=== PATIENT | male | born 1985 | race Caucasian/White ===

== ENCOUNTER 2020-05-29 18:36 | Emergency (ER) | payer OTHER, MEDICAID, SELFPAY ==
[2020-05-29] VITALS (22 sets, daily range): BP systolic 111–127; BP diastolic 55–68; PULSE 66–98; RESP 12–23; TEMP 36.8; O2SAT 90–97; BMI 21.0
--- NOTE | 2020-05-29 19:01 | ED.SEIZURE ---
HPI - Seizure General Chief Complaint: Seizure Stated Complaint: Seizure Time Seen by Provider: 05/29/20 19:00 Source: EMS Mode of arrival: EMS History of Present Illness HPI Narrative: 34-year-old gentleman presents via medics after reports of a grand mal seizure on the side of the road. Medics report that he has a known seizure disorder and uses both Dilantin and Keppra, he typically is homeless and typically seeks care at [facility]. Related Data Home Medications Medication Instructions Recorded Confirmed phenytoin sodium extended 300 mg PO QDAY #0 04/25/12 [Dilantin Extended] Previous Rx's Medication Instructions Recorded levetiracetam [Keppra] 1,000 mg PO BID #120 tab 05/30/20 Allergies Allergy/AdvReac Type Severity Reaction Status Date / Time bee venom protein (honey bee) Allergy Unknown Verified 05/29/20 19:14 egg Allergy Unknown Verified 05/29/20 19:14 iodine Allergy Unknown Verified 05/29/20 19:14 SULFATES Allergy Intermediate VOMITING Uncoded 02/02/18 12:10 DIARRHEA Review of Systems Review of Systems Narrative: Patient is postictal ROS Unobtainable: Unobtainable due to mental status/LOC Patient History Medical History (Updated 05/30/20 @ 00:48 by Esther Cage MD) Seizure disorder (Acute) Social History Smoking Status: Current every day smoker Smoking Status: Current every day smoker alcohol intake frequency: 3 or more drinks per day Substance Use Type: marijuana and methamphetamine Exam Narrative Exam Narrative: General: Healthy appearing, in no acute distress. Mild sunburn to face and arms. Responds to questions by opening his eyes but no significant verbal interaction yet HEENT: Moist mucous membranes, mildly injected sclera bilaterally with reactive pupils, minor damage to the side of his tongue without any bleeding Neck: supple Respiratory: Lungs are clear to auscultation, no wheezing no rales no rhonchi. Full and symmetrical air movement Cardiac: Regular rate and rhythm, 3/6 systolic ejection murmur no bruits Abdomen: Soft nontender good bowel tones, no flank pain Skin: Warm and dry, mild sunburn over the face and arms Neurologic: Grossly neurologically intact, hyperreflexic but no focal deficits, still postictal that seems to be improving rapidly Extremities: No trauma, well perfused Psych: Postictal Initial Vital Signs Initial Vital Signs: Vital Signs Temperature 98.2 F 05/29/20 18:43 Pulse Rate 98 H 05/29/20 18:43 Respiratory Rate 18 05/29/20 18:43 Blood Pressure 111/57 L 05/29/20 18:43 Pulse Oximetry 97 05/29/20 18:43 Course Orders Ordered: ED Orders 05/29/20 18:45 Basic Metabolic Panel Stat Complete Blood Count AUTO DIFF Stat Ethanol (ETOH) Stat Magnesium Stat Prolactin Stat 05/29/20 20:35 Urine Drug Screen, Rapid Stat Urine Microscopic Stat Discontinued Medications Levetiracetam 1,500 mg/ Sodium (Chloride) 115 mls @ 460 mls/hr IV NOW ONE Stop: 05/29/20 19:11 Last Infusion: 05/29/20 20:00 Dose: 460 mls/hr Documented by: Admin: 05/29/20 19:42 Dose: 460 mls/hr Documented by: HANNAH Vital Signs Vital signs: Vital Signs - 8 hr 05/29/20 18:43 05/29/20 18:57 05/29/20 19:00 Temperature 98.2 F Pulse Rate 98 H 97 H 98 H Respiratory Rate 18 18 17 Blood Pressure 111/57 L 112/56 L Pulse Oximetry 97 92 90 L 05/29/20 19:15 05/29/20 19:30 05/29/20 19:45 Temperature Pulse Rate 97 H 96 H 96 H Respiratory Rate 17 17 17 Blood Pressure 114/55 L 113/58 L 115/55 L Pulse Oximetry 92 92 93 05/29/20 20:00 05/29/20 20:15 05/29/20 20:30 Temperature Pulse Rate 95 H 91 H 88 Respiratory Rate 17 19 20 Blood Pressure 117/58 L 125/58 L 119/58 L Pulse Oximetry 93 94 92 05/29/20 20:45 05/29/20 21:00 05/29/20 21:15 Temperature Pulse Rate 89 91 H 91 H Respiratory Rate 17 16 18 Blood Pressure 122/58 L 127/59 L 126/58 L Pulse Oximetry 94 90 L 90 L 05/29/20 21:30 05/29/20 21:45 05/29/20 22:00 Temperature Pulse Rate 90 84 79 Respiratory Rate 15 15 23 Blood Pressure 127/63 126/68 114/55 L Pulse Oximetry 93 93 93 05/29/20 22:15 05/29/20 22:30 05/29/20 22:45 Temperature Pulse Rate 78 74 80 Respiratory Rate 17 17 15 Blood Pressure 114/57 L 117/59 L 116/58 L Pulse Oximetry 93 93 93 05/29/20 23:00 05/29/20 23:15 05/29/20 23:30 Temperature Pulse Rate 79 78 76 Respiratory Rate 14 15 14 Blood Pressure 123/67 120/65 119/65 Pulse Oximetry 94 94 94 05/29/20 23:45 Temperature Pulse Rate 66 Respiratory Rate 12 Blood Pressure 126/68 Pulse Oximetry 96 MDM - Seizure Medical Records Attestation: I reviewed the patient's medical records. Lab Data Attestation: I reviewed the patient's lab results. Lab results narrative: All labs are consistent with recent seizure. Result diagrams: 05/29/20 18:45 05/29/20 18:45 Labs: Lab Results 05/29/20 05/29/20 05/29/20 Range/Units 18:45 18:45 20:35 WBC 12.6 H (4.5-11.0) X10^3/uL RBC 4.38 L (4.5-5.9) X10^6/uL Hgb 13.3 L (13.5-17.5) g/dL Hct 40.1 L (41-53) % MCV 91.6 (80-100) fL MCH 30.4 (26-34) PG MCHC 33.1 (30-36) % RDW 15.8 H (11.6-14.8) % Plt Count 273 (150-400) X10^3/uL Neut % (Auto) 80.1 H (50-75) % Lymph % (Auto) 14.0 L (25-40) % [place] % (Auto) 4.7 (3-14) % Eos % (Auto) 0.9 L (2-4) % Baso % (Auto) 0.3 (0-2) % Neut # (Auto) 04186 H (2375-7995) /uL Lymph # (Auto) 1800 (6004-7282) /uL [place] # (Auto) 600 (0-900) /uL Eos # (Auto) 100 (0-450) /uL Baso # (Auto) 0 (0-100) /uL Sodium 141 (137-145) mmol/L Potassium 3.4 (3.4-5.1) mmol/L Chloride 105 (98-107) mmol/L Carbon Dioxide 24 (22-32) mmol/L BUN 12 (9-20) mg/dL Creatinine 0.81 (0.66-1.25) mg/dL Estimated GFR > 60.0 (>60) mL/min BUN/Creatinine Ratio 14.8 (6-22) Glucose 95 (70-100) mg/dL Calcium 9.8 (8.4-10.2) mg/dL Magnesium 1.9 (1.6-2.3) mg/dL Prolactin 26.0 H (3.7-17.9) ng/mL Urine Color Cancelled Urine Appearance Cancelled Urine pH Cancelled Ur Specific [place] Cancelled Urine Protein Cancelled Urine Glucose (UA) Cancelled Urine Ketones Cancelled Urine Occult Blood Cancelled Urine Nitrate Cancelled Urine Bilirubin Cancelled Urine Urobilinogen Cancelled Ur Leukocyte Esterase Cancelled Urine RBC (0-5/HPF) Urine WBC (0-5/HPF) Ur Squamous Epith Cells (0-5/HPF) Urine Bacteria (None) Urine Mucus (Negative) Ur Culture Indicated? U Opiates 300ng/mL cut (Negative) Ur Oxycodone Screen (Negative) Urine Methadone Screen (Negative) Ur Barbiturates Screen (Negative) U Tricyclic Antidepress (Negative) Ur Phencyclidine Scrn (Negative) Ur Amphetamines Screen (Negative) U Methamphetamines Scrn (Negative) Ur MDMA Scrn (Ecstasy) (Negative) U Benzodiazepines Scrn (Negative) Urine Cocaine Screen (Negative) U Marijuana (THC) Screen (Negative) Ethyl Alcohol 78 H ( - 10) mg/dL 05/29/20 05/29/20 Range/Units 20:35 20:35 WBC (4.5-11.0) X10^3/uL RBC (4.5-5.9) X10^6/uL Hgb (13.5-17.5) g/dL Hct (41-53) % MCV (80-100) fL MCH (26-34) PG MCHC (30-36) % RDW (11.6-14.8) % Plt Count (150-400) X10^3/uL Neut % (Auto) (50-75) % Lymph % (Auto) (25-40) % [place] % (Auto) (3-14) % Eos % (Auto) (2-4) % Baso % (Auto) (0-2) % Neut # (Auto) (2208-3806) /uL Lymph # (Auto) (0488-7627) /uL [place] # (Auto) (0-900) /uL Eos # (Auto) (0-450) /uL Baso # (Auto) (0-100) /uL Sodium (137-145) mmol/L Potassium (3.4-5.1) mmol/L Chloride (98-107) mmol/L Carbon Dioxide (22-32) mmol/L BUN (9-20) mg/dL Creatinine (0.66-1.25) mg/dL Estimated GFR (>60) mL/min BUN/Creatinine Ratio (6-22) Glucose (70-100) mg/dL Calcium (8.4-10.2) mg/dL Magnesium (1.6-2.3) mg/dL Prolactin (3.7-17.9) ng/mL Urine Color Urine Appearance Urine pH Ur Specific [place] Urine Protein Urine Glucose (UA) Urine Ketones Urine Occult Blood Urine Nitrate Urine Bilirubin Urine Urobilinogen Ur Leukocyte Esterase Urine RBC None seen (0-5/HPF) Urine WBC 0-1/hpf (0-5/HPF) Ur Squamous Epith Cells 0-1 /hpf (0-5/HPF) Urine Bacteria None seen (None) Urine Mucus 1+ H (Negative) Ur Culture Indicated? Cult not indicated U Opiates 300ng/mL cut Negative (Negative) Ur Oxycodone Screen Negative (Negative) Urine Methadone Screen Negative (Negative) Ur Barbiturates Screen Negative (Negative) U Tricyclic Antidepress Positive H (Negative) Ur Phencyclidine Scrn Negative (Negative) Ur Amphetamines Screen Negative (Negative) U Methamphetamines Scrn Negative (Negative) Ur MDMA Scrn (Ecstasy) Negative (Negative) U Benzodiazepines Scrn Positive H (Negative) Urine Cocaine Screen Negative (Negative) U Marijuana (THC) Screen Positive H (Negative) Ethyl Alcohol ( - 10) mg/dL Point of Care Testing Glucose POC 110 Urine Dip Bedside Urine Glucose Negative Bedside Urine Bilirubin + 1 Bedside Urine Ketone +/- 5 Urine Specific [place] 1.015 Bedside Urine Occult Blood - Negative Bedside Urine pH 6.0 Bedside Urine Protein +/- 15 Bedside Urine Urobilinogen +/- 1mg Bedside Urine Nitrite - Negative Bedside Urine Leukocytes - Negative Esterase MDM Narrative Medical decision making narrative: 34-year-old gentleman with a history of a seizure disorder. Not taking his medications and had a seizure today. Labs are reassuring. Patient is essentially homeless. He states that he does not currently have his Keppra and isn't sure of his other medications. His Keppra is refilled for a month and he is encouraged to follow-up with his primary care physician. At this time, he is safe for home discharge Discharge Plan Departure Patient Disposition: Home Clinical Impression: Seizure disorder Instructions: DI for Seizure Disorder -- Adult Activity Restrictions/Additional Instructions: I am sorry you have had another seizure today. you were given IV keppra in the ER I have given you a prescription of keppra, 500mg pills, 2 pills (1000mg) am and pm. I don't have any way to confirm your other medications and doses this evening to offer you refills. Please follow up with you regular doctor to get your medications refilled to prevent continued seizures Prescriptions: New levetiracetam [Keppra] 500 mg tablet 1,000 mg PO BID Qty: 120 RF: 0 No Action phenytoin sodium extended [Dilantin Extended] 100 MG capsule 300 mg PO QDAY Qty: 0 RF: 0
[2020-05-29 19:30] LABS: Add Manual Diff / Slide Review NO; Basophils Absolute Auto 0 /uL (0-100); Basophils Percent Auto 0.3 % (0-2); Eosinophils Absolute Auto 100 /uL (0-450); Eosinophils Percent Auto 0.9 % (2-4); Hematocrit 40.1 % (41-53); Hemoglobin 13.3 g/dL (13.5-17.5); Lymphocytes Absolute Auto 1800 /uL (1100-4500); Mean Corpuscular HGB Conc 33.1 % (30-36); Mean Corpuscular Hemoglobin 30.4 PG (26-34); Mean Corpuscular Volume 91.6 fL (80-100); Monocytes Absolute Auto 600 /uL (0-900); Monocytes Percent Auto 4.7 % (3-14); Neutrophils Absolute Auto 10100 /uL (1500-7000); Neutrophils Percent Auto 80.1 % (50-75); Platelet Count 273 X10^3/uL (150-400); Red Blood Cell Count 4.38 X10^6/uL (4.5-5.9); Red Cell Distribution Width 15.8 % (11.6-14.8); White Blood Cell Count 12.6 X10^3/uL (4.5-11.0)
[2020-05-29 19:34] LABS: BUN Creatinine Ratio 14.8 (6-22); Blood Urea Nitrogen 12 mg/dL (9-20); Calcium 9.8 mg/dL (8.4-10.2); Carbon Dioxide 24 mmol/L (22-32); Chloride 105 mmol/L (98-107); Estimated Glomerular Filt Rate > 60.0 mL/min (>60); Ethanol (ETOH) 78 mg/dL; Glucose 95 mg/dL (70-100); HEMOLYSIS < 15 (0-50); Magnesium 1.9 mg/dL (1.6-2.3); Potassium 3.4 mmol/L (3.4-5.1); Sodium 141 mmol/L (137-145)
[2020-05-29] MEDS: levETIRAcetam 1,500 MG in SODIUM CHLORIDE 0.9% 100 ML 460 ML IV (19:42)
[2020-05-29 20:50] LABS: Bacteria Urine None Seen; RBC Urine None Seen (0-5/HPF)
[2020-05-29 20:58] LABS: Culture Indicated Urine Cult Not Indicated; Mucus Urine 1+ (Negative); Squamous Epithelial Cell Urine 0-1 /HPF (0-5/HPF); WBC Urine 0-1/HPF (0-5/HPF)
[2020-05-29 21:00] LABS: UR Morphine/Opiate cutoff 300 Negative (Negative); Ur Creatinine Normal (Normal); Ur Specific Gravity Normal (Normal); Urine Amphetamines Negative (Negative); Urine Barbiturates Negative (Negative); Urine Benzodiazepines Positive (Negative); Urine Cocaine Negative (Negative); Urine MDMA Negative (Negative); Urine Methamphetamines Negative (Negative); Urine Phencyclidine Negative (Negative); Urine Tetrahydrocannabinol Positive (Negative); Urine pH Normal (Normal)
[2020-05-29 21:01] LABS: Urine Methadone Negative (Negative); Urine Oxycodone Negative (Negative); Urine Tricyclic Antidepressant Positive (Negative)
== END 2020-05-30 01:00 | disposition home or self-care (01) ==
PROVIDERS: Emergency Provider Emergency Medicine
DX: G40.909 Epilepsy, unspecified, not intractable, without status epilepticus (principal)
CPT/HCPCS: 36415; 80048; 80305; 80320; 81003; 81015; 82962; 83735; 84146; 85025; 96365; 99284; J1953

== ENCOUNTER 2020-05-30 01:37 | Emergency (ER) | payer OTHER, MEDICAID, SELFPAY ==
--- NOTE | 2020-05-30 01:40 | ED_ITS ---
HPI - General Adult <Esther Cage MD - Last Filed: 05/30/20 18:00> General Chief complaint: Psychiatric Symptoms Stated complaint: SI Time Seen by Provider: 05/30/20 01:39 History of Present Illness HPI narrative: 34-year-old gentleman with a history of a seizure disorder and homelessness was brought in initially by medics after having a seizure witnessed by bystanders. He was initially postictal labs are unremarkable and he was discharged home. Asked what medications he took he said that he had none available to him after looking through his ?black bag that hold all his were early possessions? he was unable to remember the names of his medications except for Keppra. He believes that he takes a 1000 mg twice a day. He was given 1500 mg of IV Keppra and a prescription to fill along with instructions to follow-up with his primary care physician. He asked to stay for the evening and we declined. Within 5 minutes of discharge he comes back to the registration desk saying that he has taken 5 300 mg Seroquel (1500mg) and 10 25 mg hydroxyzine (250mg) and he wants to kill himself. It is unclear which part is the untruth, that he did not know which medications he was on and did not have any in his bag or that he did not actually take the subsequent Seroquel and hydroxyzine. On further questioning, he states that he has been suicidal for the last 3 weeks and is not quite sure why he is on this earth. Apparently his mother sometime in March. He states he has tried jumping off of things to kill himself previously. In reviewing ED i.e. data most of his prior diagnosis include suicidal, suicidal ideation, bipolar disorder, alcohol use disorder, alcohol withdrawal or variations of those combinations Related Data Home Medications Medication Instructions Recorded Confirmed phenytoin sodium extended 300 mg PO QDAY #0 04/25/12 [Dilantin Extended] Previous Rx's Medication Instructions Recorded levetiracetam [Keppra] 1,000 mg PO BID #120 tab 05/30/20 Allergies Allergy/AdvReac Type Severity Reaction Status Date / Time bee venom protein (honey bee) Allergy Unknown Verified 05/29/20 19:14 egg Allergy Unknown Verified 05/29/20 19:14 iodine Allergy Unknown Verified 05/29/20 19:14 SULFATES Allergy Intermediate VOMITING Uncoded 02/02/18 12:10 DIARRHEA Review of Systems <Esther Cage MD - Last Filed: 05/30/20 18:00> Review of Systems Narrative: Willfully manipulative and belligerent and not offering answers to review of system questions ROS Unobtainable: Unobtainable due to mental condition Patient History <Esther Cage MD - Last Filed: 05/30/20 18:00> Medical History Seizure disorder (Acute) Social History Smoking Status: Current every day smoker Smoking Status: Current every day smoker alcohol intake frequency: 3 or more drinks per day Substance Use Type: marijuana and methamphetamine Exam <Esther Cage MD - Last Filed: 05/30/20 18:00> Narrative Exam Narrative: General: Disheveled, no acute distress HEENT: Moist mucous membranes, normal sclera with reactive pupils, Neck: No JVD, supple Respiratory: Lungs are clear to auscultation, no wheezing no rales no rhonchi. Full and symmetrical air movement Cardiac: Regular rate and rhythm no murmurs no bruits Abdomen: Soft nontender good bowel tones, no flank pain Skin: Warm and dry, no rashes Neurologic: Grossly neurologically intact with no obvious asymmetries or abnormalities Extremities: No trauma, well perfused Psych: Manipulative and uncooperative but not overtly violent Initial Vital Signs Initial Vital Signs: Vital Signs Temperature 98.5 F 05/30/20 01:45 Pulse Rate 73 05/30/20 01:45 Respiratory Rate 16 05/30/20 01:45 Blood Pressure 113/79 05/30/20 01:45 Pulse Oximetry 98 05/30/20 01:45 <Radha Pop DO - Last Filed: 05/30/20 11:12> Initial Vital Signs Initial Vital Signs: Vital Signs Temperature 98.5 F 05/30/20 01:45 Pulse Rate 73 05/30/20 01:45 Respiratory Rate 16 05/30/20 01:45 Blood Pressure 113/79 05/30/20 01:45 Pulse Oximetry 98 05/30/20 01:45 Course <Esther Cage MD - Last Filed: 05/30/20 18:00> Orders Ordered: ED Orders 05/30/20 02:09 Consult to [facility] Stat Vital Signs Vital signs: Vital Signs - 8 hr 05/30/20 09:26 Pulse Rate 66 Respiratory Rate 18 Blood Pressure 131/88 Pulse Oximetry 98 <Radha Pop DO - Last Filed: 05/30/20 11:12> Orders Ordered: ED Orders 05/30/20 02:09 Consult to [facility] Stat Vital Signs Vital signs: Vital Signs - 8 hr 05/30/20 09:26 Pulse Rate 66 Respiratory Rate 18 Blood Pressure 131/88 Pulse Oximetry 98 Medical Decision Making <Esther Cage MD - Last Filed: 05/30/20 18:00> Medical Records Medical records narrative: MAKAYLA report is reviewed Indicates headache mal epilepsy, glaucoma, alcoholism, ulcer disease, tobacco use With recommendations for ED crisis counselor to screening assess patient for appropriate chemical dependency treatment and or mental health evaluation. Of note he has had 20 emergency room visits in the last 12 months ranging from [facility] to [facility] to [facility]. Lab Data Lab results narrative: Labs drawn at 6:45 this evening: CBC white blood cell count of 12.6, hemoglobin 13.3, hematocrit 40.1 and platelets at 273. This was immediately postictal and the mild leukocytosis is presumably secondary to the recent seizure. Chemistries: Sodium of 141, potassium 3.4, chloride 105, carbon dioxide 24, BUN of 12, creatinine of 0.8, glucose of 95 calcium 9.8 magnesium 1.9 prolactin of 26.0 consistent with recent seizure Urinalysis is unremarkable Urine tox Is positive for tricyclic antidepressants, benzodiazepines and marijuana MDM Narrative Medical decision making narrative: Will monitor over the next number of hours. Suspect that there was actually no ingestion, however suspect that he will sleep well after the recent seizure and nights of significant sleep deprivation. Will ask for elementary school social worker involvement in the morning. He currently is in a ligature free room and states that he has ?done all that he can do? and is not planning on anything else to try and harm himself. He is quite sleepy. Will monitor respiratory rate however I do not think a sitter is required at this time as his behavior is far more suggestive manipulation rather than true suicidal intent <Radha Pop, DO - Last Filed: 05/30/20 11:12> MDM Narrative Medical decision making narrative: Patient signed out to me by Dr. Cage and seen evaluated patient myself. Social work has been down to speak with patient. He states he is ready to go he does not need homeless resources. He refuses to take his seizure medicine stating that it does not work he has seizures regardless. He denies suicidal ideations at this time. Patient requesting to be discharged. . Discharge Plan Departure Patient Disposition: Home Clinical Impression: Seizure disorder, Suicidal ideations Discharge Date/Time: 05/30/20 09:31 Instructions: DI for Suicidal Ideation-Adult Activity Restrictions/Additional Instructions: *You have been diagnosed with seizure in suicidal ideation *What to do: If you are feeling suicidal or having suicidal thoughts: Call: Suicide Hotline: Visit: www.[facility] Text: 684918 *Continue to take medications as directed Please take seizure medication as instructed *Follow up with your primary care provider in 2-3 days *Return to ER if you should have any new, worsening or concerning symptoms Prescriptions: No Action phenytoin sodium extended [Dilantin Extended] 100 MG capsule 300 mg PO QDAY Qty: 0 RF: 0 levetiracetam [Keppra] 500 mg tablet 1,000 mg PO BID Qty: 120 RF: 0 Referrals: [facility] [Outside]
[2020-05-30 01:45] VITALS: BP 113/79; PULSE 73; RESP 16; TEMP 36.9; O2SAT 98; BMI 20.9
--- NOTE | 2020-05-30 02:21 | PC.NURSE ---
Provider in to assess patient. Provider stated no sitter needed at this time.
[2020-05-30 09:26] VITALS: BP 131/88; PULSE 66; RESP 18; O2SAT 98
--- NOTE | 2020-05-30 11:03 | CM.SWNOTE ---
TRANSMISSION CALIBRATION ENGINEER Note This TRANSMISSION CALIBRATION ENGINEER requested to consult to assess safety and needs of this 34 yo, h/o seizure disorder, presented initially 8.5.20 after having a seizure witnessed by bystanders. Patient had told the physician he had no recollection of home medication, requested to spend the night, request was declined as patient was medically cleared to DC home (chronic homelessness) after medical clearance. Patient returned shortly thereafter stating he had taken his home medications and stated he wanted to kill himself. According to Dr Cage's review of patient's medical records, per HPI: In reviewing ED i.e. data most of his prior diagnosis include suicidal, suicidal ideation, bipolar disorder, alcohol use disorder, alcohol withdrawal or variations of those combinations Radha Pop, ED provider this AM, requests this TRANSMISSION CALIBRATION ENGINEER assess and complete safety planning for patient's anticipated DC from the ED today. Met w/patient, introduced TRANSMISSION CALIBRATION ENGINEER role. Patient admits to feelings of hopelessness and desperation as he has lost loved ones very close to him and has been chronically homeless for approx 11 years. Patient does not endorse a specific plan for suicide today. Discussed resources; patient states that he is familiar with all of the shelters available from [place] to [place]. Patient will not go to [place] d/t prior experience and states he will not sleep in a room of over 20 people d/t PTSD/anxiety. This TRANSMISSION CALIBRATION ENGINEER asked about the following resources: [facility] [place]/Housing List ? [place]/Counseling and MH support ? Primary Care Physician? Disability and/or SSI benefits? Food stamps ? Patient states he does not have a PCP and is not interested in a list of providers. Patient denies the need for counseling and states they are not allowing in person appts anyway d/t COVID-19 pandemic. Patient states he is on the housing wait list through [employer] and that it is currently 3 years wait time. Patient cannot get disability benefits because his only work history in the last 10+ years has been under the table. Patient states he cannot hold down a job because he has a staph infection. In conclusion, this TRANSMISSION CALIBRATION ENGINEER offered to bring back a list of community resources that patient may not have heard of (?) and discuss them together, in case this TRANSMISSION CALIBRATION ENGINEER could be of assistance in securing resources before patient departs the ED today. Patient dismissed this offer and states I would rather just leave than have that conversation with you. Patient makes comments throughout our conversation about hopelessness and feeling overwhelmed by current life circumstance, although not willing at this time to discuss steps to improve or stabilize current life circumstance, denies current suicidal ideation and plan. Updated nursing staff and Dr Donn guerra/summary of above. Aby Anderson MSW
== END 2020-05-30 09:31 | disposition home or self-care (01) ==
PROVIDERS: Emergency Provider Emergency Medicine
DX: R56.9 Unspecified convulsions (principal); R45.851 Suicidal ideations
CPT/HCPCS: 99284